=== PATIENT | female | born 1965 | race Caucasian/White ===

== ENCOUNTER → 2016-10-16 | Outpatient (CLI) | payer MEDICARE ==
[~2016-10-16] MED LIST: BIOTIN2500 MCG PO; CLARITIN10 MG PO; DICLOFENAC PO; FLUOXETINE HCL20 MG PO; LANSOPRAZOLE30 MG PO; NEURONTIN 300300 MG PO; NORCO 10-325 T1 EACH PO; NORCO 5-325 TA1 EACH PO; PLAQUENIL 200200 MG PO; TRAMADOL HCL50 MG PO; TRAZODONE HCL50 MG PO
[2016-10-16 13:37] LABS: BUN/CREATININE RATIO 13 (0-10)
[2016-10-16 15:47] LABS: HEMOGLOBIN 13.5 gm/dl (12.3-15.3); RED BLOOD COUNT 4.58 M/UL (4.00-5.10)
== END ==
LOC: OPSV2 12:30
PROVIDERS: Anesthesiology; Orthopaedic Surgery
DX: Z01.810 Encounter for preprocedural cardiovascular examination (principal); Z01.812 Encounter for preprocedural laboratory examination; G56.01 Carpal tunnel syndrome, right upper limb; Z87.09 Personal history of other diseases of the respiratory system
CPT/HCPCS: 36415; 80048; 85025; 93005

== ENCOUNTER → 2016-10-25 | Day surgery (SDC) | payer MEDICARE | END | disposition home or self-care (01) | LOC: OR 10:30 | PROVIDERS: Orthopaedic Surgery | PROC: 01N50ZZ Release Median Nerve, Open Approach (ICD-10-PCS; principal; 2016-10-25 14:30) | DX: G56.01 Carpal tunnel syndrome, right upper limb (principal); M19.90 Unspecified osteoarthritis, unspecified site; G89.29 Other chronic pain; F17.210 Nicotine dependence, cigarettes, uncomplicated; Z79.899 Other long term (current) drug therapy; Z90.89 Acquired absence of other organs; Z88.8 Allergy status to other drugs, medicaments and biological substances; Z90.49 Acquired absence of other specified parts of digestive tract; Z87.19 Personal history of other diseases of the digestive system; Z87.440 Personal history of urinary (tract) infections | CPT/HCPCS: J0690; J2250; J3010; J7030; J7120 ==

== ENCOUNTER → 2016-12-26 | Outpatient (CLI) | payer MEDICARE ==
[2016-12-26 12:26] LABS: BUN/CREATININE RATIO 18 (0-10)
== END ==
LOC: OPSV2 12-25 11:00
PROVIDERS: Orthopaedic Surgery
DX: Z01.812 Encounter for preprocedural laboratory examination (principal); G56.02 Carpal tunnel syndrome, left upper limb; Z88.8 Allergy status to other drugs, medicaments and biological substances
CPT/HCPCS: 36415; 80048

== ENCOUNTER → 2016-12-27 | Day surgery (SDC) | payer MEDICARE ==
[~2016-12-27] VITALS: Ht 142.2 cm; Wt 72.1 kg
== END | disposition home or self-care (01) ==
LOC: OR 09:30
PROVIDERS: Orthopaedic Surgery
PROC: 01N50ZZ Release Median Nerve, Open Approach (ICD-10-PCS; principal; 2016-12-27 19:45)
DX: G56.02 Carpal tunnel syndrome, left upper limb (principal); M19.90 Unspecified osteoarthritis, unspecified site; G89.29 Other chronic pain; M06.9 Rheumatoid arthritis, unspecified; Z79.899 Other long term (current) drug therapy; Z88.8 Allergy status to other drugs, medicaments and biological substances; Z90.89 Acquired absence of other organs; Z98.51 Tubal ligation status; Z87.440 Personal history of urinary (tract) infections
CPT/HCPCS: J0690; J1100; J2250; J2405; J2765; J7120